=== PATIENT | male | born 1965 | race Caucasian/White ===

== ENCOUNTER 2020-08-15 14:47 | Inpatient (IN) | payer OTHER ==
[~2020-08-15] VITALS: Ht 180.3 cm; Wt 70.2 kg
[2020-08-15] MEDS ORDERED: CEFTRIAXONE PMX 2GM/50ML 50 ML ONE (15:28)
[2020-08-15] MEDS ORDERED: CEFTRIAXONE PMX 2GM/50ML 50 ML IVPB SCH (15:30)
[2020-08-15] MEDS ORDERED: PLEASE ENTER ALLERGIES MC SCH (15:30)
[2020-08-15 15:31] LABS: BASOPHILS % (AUTO) 1 % (0-1); EOSINOPHILS % (AUTO) 1 % (1-7); LYMPHOCYTES % (AUTO) 14 % (22-44); MEAN CORPUSCULAR HEMOGLOBIN 33.7 pg (27.5-34.5); MEAN CORPUSCULAR HGB CONC 33.3 g/dL (33.2-36.2); MONOCYTES % (AUTO) 7 % (2-9); NEUTROPHILS % (AUTO) 77 % (42-75); PLATELET COUNT 463 x10^3/uL (130-400)
--- NOTE | 2020-08-15 15:32 | NUR ---
Pt in CT at this time.
[2020-08-15 15:33] LABS: ALANINE AMINOTRANSFERASE 24 U/L (12-78); ALBUMIN 2.9 g/dL (3.4-5.0); ANION GAP 11 mmol/L (5-15); CALCIUM 8.7 mg/dL (8.5-10.1); CHLORIDE 107 mmol/L (98-107); CREATININE 0.88 mg/dL (0.7-1.3)
[2020-08-15 15:36] LABS: MD NO
[2020-08-15 15:37] LABS: ALKALINE PHOSPHATASE 162 U/L (45-117); BILIRUBIN,TOTAL 0.3 mg/dL (0.2-1.0); TOTAL PROTEIN 7.1 g/dL (6.4-8.2); TROPONIN I < 0.015 ng/mL (0.000-0.045)
--- NOTE | 2020-08-15 15:41 | NUR ---
PT back from CT, resting in bed, c/o 9/10 SANDOVAL, unchanged from arrival. Pt positioned for comfort in bed, all monitors reapplied. Wet to dry dressing applied by EMT per Russ COOK.
[2020-08-15] MEDS ORDERED: LOSA25TA25 PO (15:50)
[2020-08-15 16:02] LABS: INTERNATIONAL NORMALIZED RATIO 0.93 (0.93-1.1); PROTHROMBIN TIME 9.6 Seconds (9.6-11.5)
--- NOTE | 2020-08-15 16:38 | NUR ---
PT RESTING IN GURNEY WITH EYES CLOSED, NAD AT THIS TIME.
--- NOTE | 2020-08-15 17:02 | NUR ---
PT PROVIDED WITH BLANKET AND URINAL. PT REPORTS NO OTHER NEEDS AT THIS TIME.
[2020-08-15] MEDS ORDERED: NEOSPORIN OINT, 15GM ONE (17:37)
[2020-08-15] MEDS ORDERED: EPINEPHRINE 1 MG/ML, 1ML ONE (17:37)
[2020-08-15] MEDS ORDERED: BACITRACIN 50,000 UNIT ONE (17:37)
[2020-08-15] MEDS ORDERED: BUPIVACAINE/PF 0.5% ONE (17:37)
[2020-08-15] MEDS ORDERED: MIDAZOLAM 1 MG/ML, 2ML ONE (18:00)
[2020-08-15] MEDS ORDERED: FENTANYL PF 100 MCG/2ML ONE ×3 (18:01→19:32)
[2020-08-15] MEDS ORDERED: LIDOCAINE 2%, 20ML ONE (18:32)
[2020-08-15] MEDS ORDERED: BACITRACIN 50,000 UNIT IM ONE (19:00)
[2020-08-15] MEDS ORDERED: LABETALOL 5MG/ML, 20ML IV PRN (19:00)
[2020-08-15] MEDS ORDERED: ALUMINUM/MAG/SIMETHICONE 30 ML UDC PO PRN (19:00)
[2020-08-15] MEDS ORDERED: LORazepam 2 MG/ML, 1ML IV PRN ×5 (19:00)
[2020-08-15] MEDS ORDERED: NEOSTIGMINE 1 MG/ML, 10ML ONE (19:13)
[2020-08-15] MEDS ORDERED: ONDANSETRON 2MG/ML, 2ML ONE (19:13)
[2020-08-15] MEDS ORDERED: SUCCINYLCHOLINE 20 MG/ML, 10ML ONE (19:13)
[2020-08-15] MEDS ORDERED: DEXAMETHASONE 4 MG/ML, 1ML ONE (19:13)
[2020-08-15] MEDS ORDERED: CEFAZOLIN 1,000 MG ONE (19:13)
[2020-08-15] MEDS ORDERED: PROPOFOL 10 MG/ML, 20ML ONE (19:13)
[2020-08-15] MEDS ORDERED: ROCURONIUM 10MG/ML,5ML ONE (19:13)
[2020-08-15] MEDS ORDERED: GLYCOPYRROLATE 0.2MG/1ML, 5ML ONE (19:13)
[2020-08-15] MEDS ORDERED: ONDANSETRON 2MG/ML, 2ML IVPush PRN (19:30)
[2020-08-15] MEDS ORDERED: PROMETHAZINE 25 MG SUPP PR PRN (19:30)
[2020-08-15] MEDS ORDERED: HYDROmorphone 1 MG/ML, 1ML INJ IVPush PRN (19:30)
[2020-08-15] MEDS ORDERED: ACETAMINOPHEN 325 MG TABLET PO PRN (19:30)
[2020-08-15] MEDS ORDERED: OXYcodone 5 MG/5 ML ORAL.SOL UDC PO PRN (19:30)
[2020-08-15] MEDS ORDERED: PROMETHAZINE 25 MG/ML, 1ML IVPush PRN (19:30)
[2020-08-15] MEDS ORDERED: FENTANYL PF 100 MCG/2ML IV PRN (19:30)
[2020-08-15] MEDS ORDERED: MEPERIDINE/PF 25MG/ML,1ML ONE (19:54)
[2020-08-15] MEDS ORDERED: OXYcodone 5 MG/5 ML ORAL.SOL UDC ONE (19:55)
[2020-08-15] MEDS ORDERED: MEPERIDINE/PF 25MG/0.5ML IVPush PRN (20:30)
[2020-08-15] MEDS: LEVETIRACETAM 500 MG TABLET PO SCH (21:06)
[2020-08-15] MEDS: POTASSIUM CHLORIDE 10 MEQ, MVI ADULT 10 ML, FOLIC ACID 1 MG, MAGNESIUM SULFATE 1 GM in ... IV SCH (21:06)
[2020-08-15] MEDS ORDERED: NICOTINE 21 MG/24 HR PATCH.TD24 TD ONE (22:00)
[2020-08-16] MEDS: ACETAMINOPHEN 325 MG TABLET PO PRN ×4 (00:06→20:38)
[2020-08-16 01:40] VITALS: BP 128/86
[2020-08-16 01:54] VITALS: BP 128/86
[2020-08-16 04:00] VITALS: BP 145/91
[2020-08-16] MEDS: POTASSIUM CHLORIDE 10 MEQ, MVI ADULT 10 ML, FOLIC ACID 1 MG, MAGNESIUM SULFATE 1 GM in ... IV SCH (04:46)
[2020-08-16 05:54] LABS: ANION GAP 8 mmol/L (5-15); CALCIUM 8.4 mg/dL (8.5-10.1); CHLORIDE 105 mmol/L (98-107)
[2020-08-16 05:59] LABS: BASOPHILS % (AUTO) 1 % (0-1); EOSINOPHILS % (AUTO) 0 % (1-7); LYMPHOCYTES % (AUTO) 11 % (22-44); MEAN CORPUSCULAR HEMOGLOBIN 34.1 pg (27.5-34.5); MEAN CORPUSCULAR HGB CONC 33.2 g/dL (33.2-36.2); MEAN PLATELET VOLUME 7.1 fL (7.4-10.4); MONOCYTES % (AUTO) 8 % (2-9); NEUTROPHILS % (AUTO) 80 % (42-75); PLATELET COUNT 319 x10^3/uL (130-400); RED BLOOD COUNT 3.46 x10^6/uL (4.38-5.82); RED CELL DISTRIBUTION WIDTH 13.8 % (9.4-14.8)
[2020-08-16 06:23] LABS: CREATININE 0.84 mg/dL (0.7-1.3)
[2020-08-16 06:43] LABS: <PLATELET ESTIMATE> ADEQUATE; <PLT MORPHOLOGY> NORMAL PLT MORPH; ANISOCYTOSIS 1+; MD MORPH REVIEW ONLY; POLYCHROMASIA 1+
[2020-08-16] MEDS: LOSARTAN 25MG TABLET PO SCH (08:08)
[2020-08-16] MEDS: LEVETIRACETAM 500 MG TABLET PO SCH ×2 (08:08→20:38)
[2020-08-16] MEDS ORDERED: LORazepam 1MG TABLET PO PRN ×3 (09:00)
[2020-08-16] MEDS ORDERED: LORazepam 0.5MG TABLET PO PRN (09:00)
[2020-08-16] MEDS: CHLORDIAZEPOXIDE 25 MG CAPSULE PO SCH ×3 (09:03→20:38)
[2020-08-16] MEDS: THIAMINE 100MG TABLET PO SCH (12:19)
[2020-08-16] MEDS: FOLIC ACID 1 MG TABLET PO SCH (12:19)
[2020-08-16] MEDS: LORazepam 1MG TABLET PO PRN ×2 (12:20→20:38)
[2020-08-16] MEDS: MULTIVITAMIN 1 TABLET PO SCH (12:20)
[2020-08-16] MEDS ORDERED: CEFTRIAXONE PMX 2GM/50ML 50 ML IVPB SCH (16:30)
[2020-08-17 04:45] LABS: BASOPHILS % (AUTO) 1 % (0-1); EOSINOPHILS % (AUTO) 1 % (1-7); LYMPHOCYTES % (AUTO) 22 % (22-44); MEAN CORPUSCULAR HEMOGLOBIN 33.6 pg (27.5-34.5); MONOCYTES % (AUTO) 7 % (2-9); NEUTROPHILS % (AUTO) 69 % (42-75); PLATELET COUNT 268 x10^3/uL (130-400); RED BLOOD COUNT 3.29 x10^6/uL (4.38-5.82); RED CELL DISTRIBUTION WIDTH 13.7 % (9.4-14.8)
[2020-08-17 04:58] LABS: ALBUMIN 2.4 g/dL (3.4-5.0); ANION GAP 6 mmol/L (5-15); CALCIUM 8.6 mg/dL (8.5-10.1); CHLORIDE 111 mmol/L (98-107)
[2020-08-17 05:01] LABS: ALANINE AMINOTRANSFERASE 14 U/L (12-78); ALKALINE PHOSPHATASE 125 U/L (45-117); BILIRUBIN,TOTAL 0.3 mg/dL (0.2-1.0); CREATININE 0.64 mg/dL (0.7-1.3); TOTAL PROTEIN 5.8 g/dL (6.4-8.2)
[2020-08-17 05:22] VITALS: BP 146/92
[2020-08-17] MEDS: ACETAMINOPHEN 325 MG TABLET PO PRN ×2 (05:22→21:18)
[2020-08-17 05:52] LABS: MD SCAN
[2020-08-17] MEDS: LEVETIRACETAM 500 MG TABLET PO SCH ×2 (08:10→20:57)
[2020-08-17] MEDS: THIAMINE 100MG TABLET PO SCH (08:11)
[2020-08-17] MEDS: MULTIVITAMIN 1 TABLET PO SCH (08:11)
[2020-08-17] MEDS: LOSARTAN 25MG TABLET PO SCH (08:11)
[2020-08-17] MEDS: FOLIC ACID 1 MG TABLET PO SCH (08:11)
[2020-08-17] MEDS: CHLORDIAZEPOXIDE 25 MG CAPSULE PO SCH ×2 (08:39→20:57)
[2020-08-17] MEDS ORDERED: THIAMINE 100 MG in DEXTROSE 5% 50 ML IVPB SCH (09:00)
[2020-08-17] MEDS: BUTALB/APAP/CAFFEINE 50MG/325MG/40MG PO PRN ×2 (09:14→16:15)
[2020-08-17] MEDS ORDERED: VANCOMYCIN PMX 1GM/200ML 200 ML IV ONE (12:30)
[2020-08-17] MEDS ORDERED: VANCOMYCIN PER PHARMACY MC PRN (12:30)
[2020-08-17] MEDS ORDERED: PIPERACILLIN/TAZO/PMX 3.375GM 50 ML IV SCH (12:30)
[2020-08-17] MEDS ORDERED: PHARMACOKINETIC CONSULTATION MC ONE (13:00)
[2020-08-17] MEDS ORDERED: PHARMACOKINETIC MONITORING MC PRN (13:00)
[2020-08-17] MEDS ORDERED: VANCOMYCIN 1,700 MG in SODIUM CHLORIDE 0.9% 250 ML IV ONE (13:00)
[2020-08-17] MEDS ORDERED: AMPICILLIN/SULBACTAM 3 GM in SODIUM CHLORIDE 0.9% 100 ML IV SCH (14:30)
[2020-08-17] MEDS: AMPICILLIN/SULBACTAM 3 GM in SODIUM CHLORIDE 0.9% 100 ML IV SCH ×2 (16:13→23:02)
[2020-08-17] MEDS ORDERED: PNEUMOCOCCAL 23 VACCINE IM-VACC ONE (21:00)
[2020-08-17] MEDS ORDERED: FLU VACC QS2020-21(6MOS UP)/PF 60MCG/0.5 ML SYR IM-VACC ONE (21:00)
[2020-08-17 21:06] VITALS: BP 152/94
[2020-08-18] MEDS: BUTALB/APAP/CAFFEINE 50MG/325MG/40MG PO PRN ×4 (00:38→20:11)
[2020-08-18] MEDS ORDERED: VANCOMYCIN 1,400 MG in SODIUM CHLORIDE 0.9% 250 ML IV SCH (01:00)
[2020-08-18 01:58] VITALS: BP 145/86
[2020-08-18] MEDS: ACETAMINOPHEN 325 MG TABLET PO PRN (02:46)
[2020-08-18] MEDS: AMPICILLIN/SULBACTAM 3 GM in SODIUM CHLORIDE 0.9% 100 ML IV SCH (04:26)
[2020-08-18 04:42] LABS: ANION GAP 5 mmol/L (5-15); CHLORIDE 114 mmol/L (98-107); CREATININE 0.64 mg/dL (0.7-1.3)
[2020-08-18 04:43] LABS: ALANINE AMINOTRANSFERASE 14 U/L (12-78); ALBUMIN 2.2 g/dL (3.4-5.0)
[2020-08-18 04:45] LABS: ALKALINE PHOSPHATASE 112 U/L (45-117); BILIRUBIN,TOTAL 0.3 mg/dL (0.2-1.0); TOTAL PROTEIN 5.7 g/dL (6.4-8.2)
[2020-08-18 04:51] LABS: BASOPHILS % (AUTO) 1 % (0-1); EOSINOPHILS % (AUTO) 4 % (1-7); LYMPHOCYTES % (AUTO) 25 % (22-44); MEAN CORPUSCULAR HEMOGLOBIN 33.6 pg (27.5-34.5); MEAN CORPUSCULAR HGB CONC 32.6 g/dL (33.2-36.2); MEAN PLATELET VOLUME 7.3 fL (7.4-10.4); MONOCYTES % (AUTO) 7 % (2-9); NEUTROPHILS % (AUTO) 63 % (42-75); PLATELET COUNT 245 x10^3/uL (130-400); RED BLOOD COUNT 3.09 x10^6/uL (4.38-5.82); RED CELL DISTRIBUTION WIDTH 13.5 % (9.4-14.8)
[2020-08-18 04:56] LABS: MD NO
[2020-08-18 07:16] VITALS: BP 137/89
[2020-08-18] MEDS: THIAMINE 100MG TABLET PO SCH (08:39)
[2020-08-18] MEDS: MULTIVITAMIN 1 TABLET PO SCH (08:39)
[2020-08-18] MEDS: FOLIC ACID 1 MG TABLET PO SCH (08:39)
[2020-08-18] MEDS: LEVETIRACETAM 500 MG TABLET PO SCH ×2 (08:39→20:11)
[2020-08-18] MEDS: LOSARTAN 25MG TABLET PO SCH (08:40)
[2020-08-18] MEDS: DAPTOMYCIN 500 MG in SODIUM CHLORIDE 0.9% 100 ML IV SCH (10:15)
[2020-08-18 12:53] VITALS: BP 134/91
[2020-08-18 19:33] VITALS: BP 127/79
[2020-08-19 00:06] VITALS: BP 129/83
[2020-08-19] MEDS: ACETAMINOPHEN 325 MG TABLET PO PRN ×3 (01:52→16:06)
[2020-08-19 06:26] LABS: BASOPHILS % (AUTO) 1 % (0-1); EOSINOPHILS % (AUTO) 4 % (1-7); LYMPHOCYTES % (AUTO) 26 % (22-44); MEAN CORPUSCULAR HEMOGLOBIN 33.2 pg (27.5-34.5); MEAN CORPUSCULAR HGB CONC 32.4 g/dL (33.2-36.2); MEAN PLATELET VOLUME 7.3 fL (7.4-10.4); MONOCYTES % (AUTO) 8 % (2-9); NEUTROPHILS % (AUTO) 61 % (42-75); PLATELET COUNT 271 x10^3/uL (130-400); RED BLOOD COUNT 3.35 x10^6/uL (4.38-5.82); RED CELL DISTRIBUTION WIDTH 13.7 % (9.4-14.8)
[2020-08-19 06:31] LABS: MD NO
[2020-08-19 06:36] LABS: ANION GAP 5 mmol/L (5-15); CALCIUM 9.1 mg/dL (8.5-10.1); CHLORIDE 110 mmol/L (98-107); CREATININE 0.78 mg/dL (0.7-1.3)
[2020-08-19 07:08] VITALS: BP 132/79
[2020-08-19] MEDS: MULTIVITAMIN 1 TABLET PO SCH (08:28)
[2020-08-19] MEDS: FOLIC ACID 1 MG TABLET PO SCH (08:28)
[2020-08-19] MEDS: LEVETIRACETAM 500 MG TABLET PO SCH ×2 (08:28→20:02)
[2020-08-19] MEDS: LOSARTAN 25MG TABLET PO SCH (08:29)
[2020-08-19] MEDS: THIAMINE 100MG TABLET PO SCH (08:29)
[2020-08-19] MEDS: DAPTOMYCIN 500 MG in SODIUM CHLORIDE 0.9% 100 ML IV SCH (08:32)
[2020-08-19] MEDS ORDERED: CEFAZOLIN 2,000 MG in SODIUM CHLORIDE 0.9% 50 ML IV SCH (11:00)
[2020-08-19] MEDS: CEFAZOLIN PMX 2GM/50ML 50 ML IVPB SCH ×2 (12:24→20:02)
[2020-08-19] MEDS: BUTALB/APAP/CAFFEINE 50MG/325MG/40MG PO PRN ×2 (12:39→20:02)
[2020-08-19 12:47] VITALS: BP 136/86
[2020-08-19 20:15] VITALS: BP 151/87
[2020-08-20 01:50] VITALS: BP 150/88
[2020-08-20] MEDS: CEFAZOLIN PMX 2GM/50ML 50 ML IVPB SCH ×3 (04:42→20:41)
[2020-08-20 07:24] VITALS: BP 144/90
[2020-08-20] MEDS: BUTALB/APAP/CAFFEINE 50MG/325MG/40MG PO PRN ×2 (07:42→20:41)
[2020-08-20] MEDS: THIAMINE 100MG TABLET PO SCH (08:51)
[2020-08-20] MEDS: MULTIVITAMIN 1 TABLET PO SCH (08:51)
[2020-08-20] MEDS: LEVETIRACETAM 500 MG TABLET PO SCH ×2 (08:51→20:41)
[2020-08-20] MEDS: LOSARTAN 25MG TABLET PO SCH (08:51)
[2020-08-20] MEDS: FOLIC ACID 1 MG TABLET PO SCH (08:51)
[2020-08-20] MEDS: ACETAMINOPHEN 325 MG TABLET PO PRN ×3 (12:00→23:17)
[2020-08-20 12:36] VITALS: BP 129/82
[2020-08-20 20:03] VITALS: BP 121/74
[2020-08-21 00:37] VITALS: BP 122/72
[2020-08-21] MEDS: BUTALB/APAP/CAFFEINE 50MG/325MG/40MG PO PRN ×4 (02:51→22:34)
[2020-08-21] MEDS: CEFAZOLIN PMX 2GM/50ML 50 ML IVPB SCH ×3 (05:01→21:22)
[2020-08-21] MEDS: ACETAMINOPHEN 325 MG TABLET PO PRN ×3 (05:01→22:35)
[2020-08-21 07:45] VITALS: BP 134/84
[2020-08-21] MEDS: LOSARTAN 25MG TABLET PO SCH (09:00)
[2020-08-21] MEDS: MULTIVITAMIN 1 TABLET PO SCH (09:38)
[2020-08-21] MEDS: THIAMINE 100MG TABLET PO SCH (09:38)
[2020-08-21] MEDS: FOLIC ACID 1 MG TABLET PO SCH (09:38)
[2020-08-21] MEDS: LEVETIRACETAM 500 MG TABLET PO SCH ×2 (09:38→21:22)
[2020-08-21 13:25] VITALS: BP 134/88
[2020-08-21 20:21] VITALS: BP 134/86
[2020-08-22 02:16] VITALS: BP 152/88
[2020-08-22] MEDS: ACETAMINOPHEN 325 MG TABLET PO PRN (04:34)
[2020-08-22] MEDS: CEFAZOLIN PMX 2GM/50ML 50 ML IVPB SCH ×2 (04:34→12:56)
[2020-08-22 07:39] VITALS: BP 142/84
[2020-08-22 07:40] LABS: ALANINE AMINOTRANSFERASE 11 U/L (12-78); ALBUMIN 2.6 g/dL (3.4-5.0); ANION GAP 8 mmol/L (5-15); CALCIUM 8.9 mg/dL (8.5-10.1); CHLORIDE 114 mmol/L (98-107); CREATININE 0.84 mg/dL (0.7-1.3)
[2020-08-22 07:42] LABS: ALKALINE PHOSPHATASE 77 U/L (45-117); BILIRUBIN,TOTAL 0.2 mg/dL (0.2-1.0); TOTAL PROTEIN 6.2 g/dL (6.4-8.2)
[2020-08-22] MEDS: FOLIC ACID 1 MG TABLET PO SCH (07:49)
[2020-08-22] MEDS: THIAMINE 100MG TABLET PO SCH (07:49)
[2020-08-22] MEDS: LEVETIRACETAM 500 MG TABLET PO SCH (07:49)
[2020-08-22] MEDS: BUTALB/APAP/CAFFEINE 50MG/325MG/40MG PO PRN ×2 (07:49→14:59)
[2020-08-22] MEDS: MULTIVITAMIN 1 TABLET PO SCH (07:49)
[2020-08-22] MEDS: LOSARTAN 25MG TABLET PO SCH (07:50)
[2020-08-22 09:11] LABS: BASOPHILS % (AUTO) 1 % (0-1); EOSINOPHILS % (AUTO) 2 % (1-7); LYMPHOCYTES % (AUTO) 32 % (22-44); MEAN CORPUSCULAR HEMOGLOBIN 33.4 pg (27.5-34.5); MEAN CORPUSCULAR HGB CONC 33.1 g/dL (33.2-36.2); MEAN PLATELET VOLUME 7.4 fL (7.4-10.4); MONOCYTES % (AUTO) 9 % (2-9); NEUTROPHILS % (AUTO) 56 % (42-75); PLATELET COUNT 300 x10^3/uL (130-400); RED BLOOD COUNT 3.28 x10^6/uL (4.38-5.82); RED CELL DISTRIBUTION WIDTH 13.9 % (9.4-14.8)
[2020-08-22 10:00] LABS: MD NO
[2020-08-22] MEDS ORDERED: DAPTOMYCIN 500 MG in SODIUM CHLORIDE 0.9% 100 ML IV SCH (14:00)
[2020-08-22] MEDS ORDERED: FOLI-17 PO (17:56)
[2020-08-22] MEDS ORDERED: THIA100T67 PO (17:56)
[2020-08-22] MEDS ORDERED: MULT-449 PO (17:56)
[2020-08-22] MEDS ORDERED: LEVE500T53 PO (17:56)
[2020-08-22] MEDS ORDERED: DAPT500V6 IV (17:56)
[2020-08-22 18:00] VITALS: BP 144/64
[2020-08-23] MEDS ORDERED: AMLO-150 PO (14:51)
[2020-08-23] MEDS ORDERED: BUTA-177 PO (15:02)
== END 2020-08-22 18:54 | disposition home or self-care (01) | DRG 603 ==
LOC: ED 15:23 → CCU 19:30 → 5SO 08-17 10:23 → CCU 08-17 10:27 → 5SO 08-17 19:12 → 4NE 08-21 07:21
PROVIDERS: ADMIT Internal Medicine; ATTEND Internal Medicine
PROC: 0HQ0XZZ Repair Scalp Skin, External Approach (ICD-10-PCS; 2020-08-15)
PROC: 3E10X8Z Irrigation of Skin and Mucous Membranes using Irrigating Substance (ICD-10-PCS; principal; 2020-08-15 18:30)
PROC: 02HV33Z Insertion of Infusion Device into Superior Vena Cava, Percutaneous Approach (ICD-10-PCS; 2020-08-22)
PROC: B548ZZA Ultrasonography of Superior Vena Cava, Guidance (ICD-10-PCS; 2020-08-22)
DX: L02.811 Cutaneous abscess of head [any part, except face] (principal); D53.9 Nutritional anemia, unspecified; F17.200 Nicotine dependence, unspecified, uncomplicated; I10 Essential (primary) hypertension; M50.31 Other cervical disc degeneration, high cervical region; R29.6 Repeated falls; S01.01XA Laceration without foreign body of scalp, initial encounter; W18.30XA Fall on same level, unspecified, initial encounter; Z20.828 Contact with and (suspected) exposure to other viral communicable diseases; F10.229 Alcohol dependence with intoxication, unspecified; D47.3 Essential (hemorrhagic) thrombocythemia; R73.9 Hyperglycemia, unspecified; Z23 Encounter for immunization; Z82.3 Family history of stroke; Z83.3 Family history of diabetes mellitus; Y92.009 Unspecified place in unspecified non-institutional (private) residence as the place of occurrence of the external cause; Z88.5 Allergy status to narcotic agent
CPT/HCPCS: 36415; J3490; S0020; 36573; 70450; 72125; 80048; 80053; 80307; 82607; 83735; 84100; 84443; 84484; 85025; 85610; 85730; 87070; 87075; 87076; 87077; 87081; 87186; 87205; 87635; 90686; 93005; G0378; J0171; J0295; J0690; J0696; J0878; J1100; J2175; J2250; J2405; J2543; J2704; J2710; J3010; J3370; J3475; J3480; C1751; J0330; J2060; J7050